=== PATIENT | male | born 1945 | race Caucasian/White ===

== ENCOUNTER → 2019-03-25 | Outpatient (CLI) | payer MEDICARE, OTHER ==
[~2019-03-25] MED LIST: IOPAMIDOL 370 MG/ML 200 ML INFUS..BTL INJ ONE; SODIUM CHLORIDE 0.9% 100 ML ONE
[2019-03-25 10:38] LABS: BLOOD UREA NITROGEN 16 mg/dL (7-26); BUN/CREATININE RATIO 18 (6-25); CREATININE, SERUM 0.87 mg/dL (0.72-1.25); EST GLOMERULAR FILTRATION RATE > 60 ML/MIN (60-)
--- NOTE | 2019-03-25 11:55 | Diagnostic Imaging Report ---
EXAM: CT Angiogram Chest WITH contrast INDICATION: Thoracic aortic aneurysm COMPARISON: None. TECHNIQUE: Chest was scanned utilizing a multidetector helical scanner from the lung apex through the level of the adrenal glands after administration of IV contrast in arterial phase. Coronal and sagittal reformations were obtained. CT Angiogram protocol was performed. 3D reconstruction was performed and viewed on dedicated workstation. Dose modulation, iterative reconstruction, and/or weight based adjustment of the mA/kV was utilized to reduce the radiation dose to as low as reasonably achievable. IV CONTRAST: 100 mL of Isovue-370 RADIATION DOSE: Total DLP: 465.5 mGy*cm COMPLICATIONS: None FINDINGS: VASCULAR FINDINGS: Thoracic aorta: Aortic Annulus: 2.7 cm Sinus of Valsalva: 3.9 cm Sinotubular Junction: 3.1 cm Ascending Aorta at level of PA: 3.6 cm Mid Arch: 3.2 cm Proximal Descendin.0 cm Mid Descendin.7 cm Distal Descendin.7 cm Aortic hiatus: 2.6 cm. No evidence of aortic dissection. Mild atherosclerotic calcifications within the thoracic aorta. Two-vessel aortic arch with common origin of the left common carotid and brachiocephalic arteries. The great vessels are widely patent. Diminutive right vertebral artery. The main pulmonary artery is not enlarged. No evidence of central pulmonary embolism. LINES/ TUBES: None. LUNGS AND AIRWAYS: The central airways are patent. No focal consolidation or pulmonary edema. Mild bibasilar dependent subsegmental atelectasis. No suspicious pulmonary nodules. PLEURA: The pleural spaces are clear. HEART AND MEDIASTINUM: The thyroid gland is normal. No supraclavicular, mediastinal, or hilar lymphadenopathy. The heart is not enlarged. No pericardial effusion. Scattered atherosclerotic coronary artery calcifications. UPPER ABDOMEN: Limited images of the upper abdomen demonstrate no focal abnormality of the partially visualized liver, gallbladder, spleen, pancreas, adrenals, or upper most kidneys. BONES/SOFT TISSUES: No acute osseous injury. No suspicious lytic or blastic lesions. IMPRESSION: No thoracic aortic aneurysm. No further imaging follow-up is necessary. No aortic dissection. No central pulmonary embolism. No focal consolidation or pulmonary edema. No suspicious pulmonary nodules. Mild atherosclerotic calcifications including of the coronary arteries. Signed by: Sophia Golver MD on 03/25/2019 11:51 AM
== END ==
LOC: CT 08:36
PROVIDERS: ATTEND Internal Medicine
DX: I77.810 Thoracic aortic ectasia (principal)
CPT/HCPCS: 36415; 71275; 82565; 84520; J7050; Q9967

== ENCOUNTER → 2021-06-23 | Outpatient (CLI) | payer MEDICARE, OTHER | LOC: RAD 09:48 | PROVIDERS: ATTEND Internal Medicine | DX: M06.9 Rheumatoid arthritis, unspecified (principal) | CPT/HCPCS: 71046 ==